=== PATIENT | female | born 1965 | race Caucasian/White ===

== ENCOUNTER 2018-07-04 18:43 | Emergency (ER) | payer OTHER ==
[~2018-07-04] VITALS: Ht 167.6 cm; Wt 73.5 kg
[2018-07-04 19:30] VITALS: Ht 167.6 cm; Wt 73.5 kg
[2018-07-05 00:29] VITALS: BP 133/74
== END 2018-07-05 00:29 | disposition home or self-care (01) ==
LOC: ED 18:43
DX: L03.211 Cellulitis of face (principal); J20.9 Acute bronchitis, unspecified; I10 Essential (primary) hypertension; E78.00 Pure hypercholesterolemia, unspecified; Z88.2 Allergy status to sulfonamides
CPT/HCPCS: J1885; J3490

== ENCOUNTER 2019-06-24 22:41 | Emergency (ER) | payer OTHER ==
[~2019-06-24] VITALS: Ht 167.6 cm; Wt 69.9 kg
[2019-06-24 22:44] VITALS: Ht 167.6 cm; Wt 69.9 kg
[2019-06-25 03:25] VITALS: BP 103/69
== END 2019-06-25 03:25 | disposition home or self-care (01) ==
LOC: ED 22:41
DX: J44.1 Chronic obstructive pulmonary disease with (acute) exacerbation (principal); Z88.2 Allergy status to sulfonamides
CPT/HCPCS: 87804